=== PATIENT | female | born 1935 | race Caucasian/White ===

== ENCOUNTER → 2017-09-02 | Outpatient (CLI) | payer MEDICARE, BC ==
[~2017-09-02] MED LIST: ALBUTEROL NEBULIZER INH; ALBUTEROL2.5 MG/31 INH; ALBUTEROL2.5 MG/32 INH; ALPHAGAN P10 ML OPHTHALMIC; ASPIRIN81 M2 PO; ATENOLOL 50 MG50 M1 PO; ATENOLOL 50MG T50 M1 PO; AZOPT5 ML OPHTHALMIC; B-12250 MCG SUBLING; BENTYL10 MG PO; CARVEDILOL12.5 MG PO; CO Q-10100 M1; COENZYME Q10100 M2 PO; DOXYCYCLINE 10100 MG PO; FISH OIL 1,001000 M2 PO; FLUOXETINE HCL20 M1 PO; HYDROCODON-ACE1 EAC4 PO; HYDROCODON-ACE1 EAC5 PO; HYDRODIURIL PO; IMDUR 30 MG TAB30 M1 PO; LISINOPRIL40 MG PO; LIVALO1 MG PO; MUCINEX TA600 MG/TA2 PO; NITROSTAT0.4 MG PO; NITROSTAT0.4 MG SUBLING; OXYGEN; OXYGEN INH; PAXIL20 MG PO; PERCOCET PO; PHENERGAN 25 MG25 M1 PO; PLAVIX 75 MG TA75 M1 PO; POTASSIUM CHLO10 MEQ; POTASSIUM CHLO10 MEQ PO; PRILOSEC 20 MG20 MG PO; PRILOSEC40 MG PO; PROZAC 20 MG20 MG PO; PROZAC20 MG PO; REFRESH5 ML; REGLAN 10 MG TA10 M1 PO; VICODIN ES TAB1 EACH PO; VITAMIN B-12500 MC3 PO; VITAMIN B-125000 MCG SUBLING; VITAMIN D 5050000 I1 PO; VITAMIN D PO; ZETIA10 MG PO; ZPAK PO; [UNRECOGNIZED DRUG - CODE] PO
--- NOTE | 2017-09-02 14:45 | 2DMMODE ---
[place] [address] 2 D/M-MODE ECHOCARDIOGRAM Name: TETE LUU Room: [facility]#: [id number] Admission: 09/02/17 Attend Phys: Luther Vaughan, Discharge: Date of : 31 Date of Service: 09/02/17 1444 Report #: [id number] THIS REPORT FOR: //name// APPROVED REPORT Study performed: 09/02/2017 10:11:16 EXAM: Comprehensive 2D, Doppler, and color-flow Echocardiogram Patient Location: Out-Patient Status: routine BSA: 1.94 HR: 60 bpm BP: 115/75 mmHg Other Information Study Quality: Good Indications Aortic Valve Disease 2D Dimensions LVEF(%): 60.78 (>50%) IVSd: 16.97 (7-11mm) LVOT Diam: 20.01 (18-24mm) LVDd: 41.61 mm PWd: 11.28 (7-11mm) Ascending Ao: 29.96 (22-36mm) LVDs: 28.23 (25-40mm) Aortic Root: 29.75 mm Quinones's LVEF: 60.78 % Volumes Left Atrial Volume (Systole) LA ESV Index: 23.10 mL/m2 Aortic Valve AoV Peak Lee.: 2.08 m/s AO Peak Gr.: 17.27 mmHg LVOT Max P.57 mmHg AO Mean Gr.: 10.73 mmHg LVOT Mean P.78 mmHg LVOT Max V: 0.94 m/s AO V2 VTI: 46.23 cm LVOT Mean V: 0.62 m/s DIAN (VTI): 1.52 cm2 LVOT V1 VTI: 22.41 cm Mitral Valve E/A Ratio: 0.49 MV Decel. Time: 333.58 [place] [address] 2 D/M-MODE ECHOCARDIOGRAM Name: TETE LUU [id number] Admission: 09/02/17 Attend Phys: Luther Vaughan, Discharge: Date of : 31 Date of Service: 09/02/17 1444 Report #: [id number] MV E Max Lee.: 0.36 m/s MV PHT: 96.74 ms MVA (PHT): 2.27 cm2 TDI E/Lateral E': 5.14 E/Medial E': 6.00 Medial E' Lee.: 0.06 m/s Lateral E' Lee.: 0.07 m/s Pulmonary Valve PV Peak Lee.: 0.92 m/s PV Peak Gr.: 3.41 mmHg Tricuspid Valve TR Peak Gr.: 15.11 mmHg RVSP: 20.11 mmHg Left Ventricle The left ventricle is normal size. There is normal LV segmental wall motion. There is normal left ventricular wall thickness. Left ventricular systolic function is normal. The left ventricular ejection fraction is within the normal range. LVEF is 55-60%. Grade I - abnormal relaxation pattern. Right Ventricle The right ventricle is normal size. The right ventricular systolic function is normal. Atria The left atrium size is normal. The right atrium size is normal. Aortic Valve Aortic valve is calcified. Trace aortic regurgitation. No hemodynamically significant valvular aortic stenosis. Mitral Valve The mitral valve is normal in structure. Mild mitral regurgitation. No evidence of mitral valve stenosis. Tricuspid Valve The tricuspid valve is normal in structure. Trace tricuspid regurgitation. The RVSP is __20.1 mmHg. Pulmonic Valve The pulmonary valve is normal in structure. There is no pulmonic [place] [address] 2 D/M-MODE ECHOCARDIOGRAM Name: TETE LUU Room: [facility]#: [id number] Admission: 09/02/17 Attend Phys: Luther Vaughan, Discharge: Date of : 31 Date of Service: 09/02/17 1444 Report #: [id number] Great Vessels The aortic root is normal in size. IVC is normal in size and collapses with >50% inspiration Pericardium There is no pericardial effusion. <Conclusion> The left ventricle is normal size. There is normal left ventricular wall thickness. Left ventricular systolic function is normal. The left ventricular ejection fraction is within the normal range. LVEF is 55-60%. Grade I - abnormal relaxation pattern. The right ventricle is normal size. The left atrium size is normal. Aortic valve is calcified. Trace aortic regurgitation. No hemodynamically significant valvular aortic stenosis. The mitral valve is normal in structure. Mild mitral regurgitation. The tricuspid valve is normal in structure. Trace tricuspid regurgitation. The RVSP is __20.1 mmHg. IVC is normal in size and collapses with >50% inspiration There is no pericardial effusion. There is normal LV segmental wall motion. <ELECTRONICALLY SIGNED> By: Wesley Miller MD, FACC 09/02/17 1444 1444 1444 Wesley Miller MD, FACC /INF
== END ==
LOC: M.CRD 09:29
DX: I34.0 Nonrheumatic mitral (valve) insufficiency (principal); I70.0 Atherosclerosis of aorta; I35.0 Nonrheumatic aortic (valve) stenosis; I10 Essential (primary) hypertension; I25.10 Atherosclerotic heart disease of native coronary artery without angina pectoris; E78.5 Hyperlipidemia, unspecified

== ENCOUNTER 2018-06-23 18:31 | Observation (INO) | payer MEDICARE, BC ==
[~2018-06-23] VITALS: Ht 165.1 cm; Wt 93.4 kg
[~2018-06-23 18:31] MED LIST changes: +AZOPT OPHTH1 %/10 M1 OPHTHALMIC; -VITAMIN B-12500 MC3 PO; +VITAMIN B-12500 MCG PO
[2018-06-23 18:34] VITALS: BP 129/71
[2018-06-23] MEDS ORDERED: NEURONTIN 300300 M1 PO (18:44)
[2018-06-23 18:46] LABS: ABSOLUTE EOSINOPHILS 0.1 thou/uL (0.0-0.7); ABSOLUTE LYMPHOCYTES 1.8 thou/uL (0.8-5.3); ABSOLUTE MONOCYTES 0.7 thou/uL (0.0-1.2); ABSOLUTE NEUTROPHILS 4.1 thou/uL (1.6-8.1); BASOPHILS 0.4 %; EOSINOPHILS 1.8 %; HEMATOCRIT 37.6 % (37.0-47.0); HEMOGLOBIN 12.4 gm/dL (12.0-15.0); LYMPHOCYTES 26.7 %; MCH 30.1 pg (26.0-34.0); MCHC 33.1 g/dL (28.0-37.0); MCV 91.2 fL (80.0-100.0); MONOCYTES 9.8 %; MPV 8.3 fl. (7.2-11.1); NUCLEATED RBCS 0 /100WBC; PLATELET COUNT* 164 thou/uL (150-400); POLYS 61.3 %; RBC 4.13 mil/uL (4.20-5.00); RDW-CV 13.1 % (10.5-14.5); WBC 6.6 thou/uL (4.0-11.0)
[2018-06-23 18:54] LABS: ANION GAP 3 mmol/L (7-16); BUN 24 mg/dL (7-18); CALCIUM 9.6 mg/dL (8.5-10.1); CHLORIDE 102 mmol/L (98-107); CO2 37 mmol/L (21-32); CREATININE 1.4 mg/dL (0.6-1.3); GLUCOSE 152 mg/dL (70-99); POTASSIUM 3.9 mmol/L (3.5-5.1); SODIUM 142 mmol/L (136-145)
[2018-06-23 18:56] LABS: APTT 26.6 Seconds (25.0-31.3); PROTIME 10.3 Seconds (9.20-11.50)
[2018-06-23] MEDS ORDERED: COZAAR 25 MG TA25 M1 PO (18:58)
[2018-06-23] MEDS ORDERED: COREG25 MG PO (19:00)
[2018-06-23] MEDS ORDERED: MOBIC15 MG PO (19:01)
[2018-06-23] MEDS ORDERED: PREDNISONE 10 M10 MG PO (19:02)
[2018-06-23] MEDS ORDERED: VOLTAREN GEL 1100 G1 TOP (19:02)
[2018-06-23] MEDS ORDERED: CELEXA20 MG PO (19:02)
[2018-06-23] MEDS ORDERED: MINOCIN50 MG PO (19:02)
[2018-06-23] MEDS ORDERED: PYRIDOXINE HCL50 MG PO (19:03)
[2018-06-23 19:13] LABS: ALBUMIN 3.6 g/dL (3.4-5.0); ALKALINE PHOSPHATASE 57 U/L (46-116); CK-MB MASS 1.5 ng/mL (<0.5-3.6); LIPASE 78 U/L (73-393); MAGNESIUM 1.9 mg/dL (1.8-2.4); NT-PRO BRAIN NAT PEPTIDE 145 pg/mL (<300); SGOT 21 U/L (15-37); SGPT 20 U/L (30-65); TOTAL BILIRUBIN 0.3 mg/dL (<0.1-1.0); TOTAL PROTEIN 7.3 g/dL (6.4-8.2); TROPONIN-I LEVEL <0.06 ng/mL (<0.06)
[2018-06-23 20:18] LABS: URINE BILIRUBIN NEGATIVE (Negative); URINE BLOOD TRACE (Negative); URINE CLARITY CLEAR; URINE COLOR YELLOW; URINE GLUCOSE-RANDOM NEGATIVE (Negative); URINE KETONES NEGATIVE (Negative); URINE LEUKOCYTES-REFLEX NEGATIVE (Negative); URINE NITRITE-REFLEX NEGATIVE (Negative); URINE PROTEIN NEGATIVE (Negative); URINE UROBILINOGEN 0.2 E.U./dl (0.2-1.0)
[2018-06-23 21:40] VITALS: BP 136/65
[2018-06-23 21:55] VITALS: BP 136/59
[2018-06-24] VITALS: BP 150/73
[2018-06-24 04:00] VITALS: BP 124/63
[2018-06-24 07:53] VITALS: BP 141/62
[2018-06-24 09:19] VITALS: BP 141/62
--- NOTE | 2018-06-24 10:15 | EKG ---
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[place]: [place] : [id number] Requested By: Jam Leyva Order Number: [id number] MD: Edwin Flores Measurements Intervals [place] Rate: 63 P: 15 [place]: 197 QRS: -62 QRSD: 163 T: 13 QT: 450 QTc: 461 Interpretive Statements Sinus rhythm RBBB and LAFB Left ventricular hypertrophy Baseline wander in lead(s) II,III,aVF Compared to ECG 10/26/2016 13:22:42 No significant changes Electronically Signed On 06-24-2018 10:15:19 ASSISTANT INFANT TODDLER TEACHER by Edwin Flores [email or web address] <ELECTRONICALLY SIGNED> By: Edwin Flores MD, [facility] 06/24/18 1015 [id number] Edwin Flores MD, [facility] /EPI
== END 2018-06-24 11:10 | disposition home or self-care (01) ==
LOC: M.ERS 18:31 → M.TBA-ER 20:41 → M.2W 20:41
PROVIDERS: Emergency Medicine; Family Medicine; ADMIT Internal Medicine
DX: R07.89 Other chest pain (principal); M19.90 Unspecified osteoarthritis, unspecified site; E86.0 Dehydration; I25.2 Old myocardial infarction; I10 Essential (primary) hypertension; J44.9 Chronic obstructive pulmonary disease, unspecified; Z79.899 Other long term (current) drug therapy; I25.10 Atherosclerotic heart disease of native coronary artery without angina pectoris

== ENCOUNTER → 2018-11-04 | Outpatient (CLI) | payer MEDICARE, BC ==
[~2018-11-04] MED LIST changes: +CELEXA20 MG PO; +COREG25 MG PO; +COZAAR 25 MG TA25 M1 PO; +MINOCIN50 MG PO; +MOBIC15 MG PO; +NEURONTIN 300300 M1 PO; +PREDNISONE 10 M10 MG PO; +PYRIDOXINE HCL50 MG PO; +VOLTAREN GEL 1100 G1 TOP
--- NOTE | 2018-11-04 14:55 | 2DMMODE ---
[place] [address] 2 D/M-MODE ECHOCARDIOGRAM Name: TETE LUU Room: [facility]#: [id number] Admission: 11/04/18 Attend Phys: Cara Correa Discharge: Date of : 31 Date of Service: 11/04/18 1454 Report #: [id number] THIS REPORT FOR: //name// APPROVED REPORT Study performed: 11/04/2018 13:05:34 EXAM: Comprehensive 2D, Doppler, and color-flow Echocardiogram Patient Location: Out-Patient BSA: 2.00 HR: 72 bpm BP: 115/75 mmHg Other Information Study Quality: Good Indications CAD 2D Dimensions IVSd: 12.96 (7-11mm) LVOT Diam: 20.85 (18-24mm) LVDd: 51.35 mm PWd: 12.30 (7-11mm) Ascending Ao: 27.22 (22-36mm) LVDs: 32.49 (25-40mm) Aortic Root: 29.14 mm Aortic Valve AoV Peak Lee.: 2.29 m/s AO Peak Gr.: 20.90 mmHg LVOT Max P.91 mmHg AO Mean Gr.: 12.34 mmHg LVOT Mean P.54 mmHg LVOT Max V: 0.85 m/s AO V2 VTI: 53.84 cm LVOT Mean V: 0.58 m/s DIAN (VTI): 1.42 cm2 LVOT V1 VTI: 22.31 cm Mitral Valve E/A Ratio: 0.57 MV Decel. Time: 503.48 ms MV E Max Lee.: 0.44 m/s MV PHT: 146.01 ms MVA (PHT): 1.51 cm2 TDI E/Lateral E': 7.33 E/Medial E': 8.80 Medial E' Lee.: 0.05 m/[place] [address] 2 D/M-MODE ECHOCARDIOGRAM Name: TETE LUU Room: [facility]#: [id number] Admission: 11/04/18 Attend Phys: Cara Correa Discharge: Date of : 31 Date of Service: 11/04/18 1454 Report #: [id number] Lateral E' Lee.: 0.06 m/s Pulmonary Valve PV Peak Lee.: 0.83 m/s PV Peak Gr.: 2.76 mmHg Tricuspid Valve RAP Estimate: 5.00 mmHg TR Peak Gr.: 25.48 mmHg RVSP: 30.48 mmHg PA Pressure: 30.48 mmHg Left Ventricle The left ventricle is normal size. The inferior and lateral segments are hypokinetic Mild concentric left ventricular hypertrophy. Left ventricular systolic function is normal. The left ventricular ejection fraction is within the normal range. LVEF is 55%. Grade I - abnormal relaxation pattern. Right Ventricle The right ventricle is normal size. The right ventricular systolic function is normal. Atria The left atrium size is normal. The right atrium size is normal. Aortic Valve Aortic valve is calcified. Trace aortic regurgitation. Mild aortic stenosis.mean gradient 12mmHg Mitral Valve The mitral valve is normal in structure. Mild mitral regurgitation. No evidence of mitral valve stenosis. Tricuspid Valve The tricuspid valve is normal in structure. Mild tricuspid regurgitation. Pulmonic Valve The pulmonary valve is normal in structure. There is no pulmonic valvular regurgitation. Great Vessels The aortic root is normal in size. IVC is normal in size and collapses >50% with inspiration[place] [address] 2 D/M-MODE ECHOCARDIOGRAM Name: JUSTETE FRANKELE [id number] Admission: 11/04/18 Attend Phys: Cara Correa Discharge: Date of : 31 Date of Service: 11/04/18 1454 Report #: [id number] There is no pericardial effusion. <Conclusion> LVEF is 55%. The inferior and lateral segments are hypokinetic Mild aortic stenosis.mean gradient 12mmHg Trace aortic regurgitation. Mild mitral regurgitation. Grade I - abnormal relaxation pattern. <ELECTRONICALLY SIGNED> By: Edwin Flores MD, [facility] 11/04/18 1454 1454 1454 Edwin Flores MD, FAC /INF
== END ==
LOC: M.CRD 10-21 14:00
DX: I08.3 Combined rheumatic disorders of mitral, aortic and tricuspid valves (principal); I25.10 Atherosclerotic heart disease of native coronary artery without angina pectoris

== ENCOUNTER → 2019-01-27 | Outpatient (CLI) | payer MEDICARE, BC ==
[~2019-01-27] MED LIST changes: +B COMPLEX1 EACH PO; +DULOXETINE HCL30 MG PO; +LASIX 40 MG TAB40 M2 PO; +MIRALAX17 GM PO; +PAXIL10 MG PO; +UNICOMPLEX M TA1 TA1 PO
--- NOTE | ~2019-01-27 | PAINCON ---
[address] [address] PAIN MANAGEMENT CONSULTATION Name: TETE LUU Room: [facility]#: [id number] Admission: 01/27/19 Attend Phys: Zabrina Carroll MD Discharge: Date of : 33 Report #: [id number] THIS REPORT FOR: //name// CC: Rubén Carroll DATE OF SERVICE: 01/27/2019 CHIEF COMPLAINT: Back pain. HISTORY: The patient is an 83-year-old female, who has been referred to the pain clinic. The patient states she has had chronic pain for about 20 years. It involves her low back area. She has noted increased pain and discomfort. A few months ago, she hurt her leg. Since hurting her legs, she has had more difficulty walking. She still ambulates at home, but only for short distances. She has been using hydrocodone and feels that this medication is beneficial. She has been using gabapentin to help with the pain. She has not had back surgery. She has seen a chiropractor in the past. She was told about 6 years ago that it was not a whole lot more that they could do and they were afraid that they may cause some worsening of her condition. She has not had chiropractic treatment since then. She has had a injection in the hip area with cortisone a few weeks ago. She has not noticed a significant improvement in her pain. She states that she did have back injections in the past. She was at [facility] and received what sounds like trigger point injections. Since she hurt her leg about a couple of months ago, she has been decreasing her activity. She does use oxygen. She initially use oxygen only at night and now is using it in the day as well. She has not undergone physical therapy. She states that her computer recycling worker does not feel that she is a candidate for surgery. She fell about 3 months ago and broke a friend's table. PAST MEDICAL HISTORY: 1. Left mastectomy/breast cancer. 2. Myocardial infarct with stents x 2. 3. History of myocardial infarction. 4. Chronic obstructive pulmonary disease. 5. Hypertension. 6. Chronic back pain. 7. Glaucoma. 8. Depression. 9. Diverticulosis, colon. 10. Gastroesophageal reflux disease. 11. Hip osteoarthritis. 12. Irritable bowel syndrome. 13. Mitral regurgitation. 14. Osteoarthritis of both knees. 15. [place] [address] PAIN MANAGEMENT CONSULTATION Name: TETE LUU [id number] Admission: 01/27/19 Attend Phys: Zabrina Carroll MD Discharge: Date of : 31 Report #: [id number] 16. Spinal stenosis of lumbar region. 17. Spondylolisthesis at L4-L5. PAST SURGICAL HISTORY: 1. Cholecystectomy in 2. 2. Colon biopsy in 2010. 3. Hip surgery in 1991. 4. Hysterectomy in 1973. 5. Mastectomy in 1993. 6. Right knee replacement in 2011. CURRENT MEDICATIONS: Aspirin 81 mg, Alphagan P eyedrops ophthalmic b.i.d., Azopt ophthalmic drops/glaucoma b.i.d., Coreg 25 mg b.i.d., vitamin B12, duloxetine 30 mg, Zetia 10 mg, Lasix 40 mg, gabapentin 300 mg, total of 600 mg t.i.d.; hydrocodone 10/325 one p.o. q.4 hours, takes about 5 tablets daily, Cozaar 25 mg, multivitamin with iron, nitroglycerin sublingual p.r.n., oxygen 4 liters nasal cannula, Paxil 10 mg, Livalo, cholesterol; MiraLax 17 grams, potassium 10 mEq, and vitamin B complex. ALLERGIES: CODEINE, PENICILLIN. 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 REVIEW OF SYSTEMS: Weight change, fever, fatigue, night sweats, eye disease, wears glasses; hearing loss, heart trouble, chest pain, shortness of breath with walking, swelling of ankles and feet, shortness of breath, loss of appetite, bowel changes, abdominal pain, peptic ulcer, joint pain, joint stiffness, weakness of muscles and joints, muscle pain, back pain, difficulty walking, lightheadedness, dizziness, numbness, and tingling sensation. PAIN CLINIC ASSESSMENT AND PQRS: 1. The patient has some arthritic changes in the low back area with spinal stenosis. She is not being treated for rheumatoid arthritis. 2. Pain intensity is 7/10. 3. Blood thinner. The patient is not on a blood thinning medication. 4. Hypertension. The patient is being treated for hypertension. 5. Opioids greater than 6 weeks. The patient receives medication from [facility], her primary physician. 6. Risk assessment tool, low for opioid use. 7. Functional assessment tool. 8. Recreational drug use. The patient denies use of recreational drugs. 9. Tobacco: The patient denies use of tobacco. 10. Alcohol. The patient denies frequent use of alcoholic beverages. PHYSICAL EXAMINATION: [facility] [address] [place] [address] PAIN MANAGEMENT CONSULTATION Name: TETE LUU Room: [facility]#: [id number] Admission: 01/27/19 Attend Phys: Zabrina Carroll MD Discharge: Date of : 33 Report #: [id number] GENERAL: The patient is a well-developed white female. She appears her stated age of 83 years. She is alert and oriented x 3. Her affect is appropriate. Speech is fluent. Height is 5 feet 5 inches, weight is 217 pounds, and BMI is 36.2. VITAL SIGNS: Blood pressure is 121/74, heart rate is 73, respiratory rate is 20, room air saturation is 92% with oxygen at 4 liters per minute using a nasal cannula, and temperature is 98.5. HEENT: Normocephalic, atraumatic. Extraocular eye muscles intact. The patient is wearing a nasal cannula. She has decreased hearing, it appeared she is accompanied by an aid. NECK: Without adenopathy or JVD. HEART: Heart sounds are distant. LUNGS: Generally, clear to auscultation. ABDOMEN: Protuberant. EXTREMITIES: Upper extremity muscle strength is judged to be 4-/5. 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 MUSCULOSKELETAL: The patient is in a wheelchair. She complains of pain in lower portion of her back and describes pain that is radiating down in the L5-S1 dermatomal distribution with sciatica on the left as well as the right side. LABORATORY DATA: 1. Study of lumbar spine, four views, AP, lateral, right oblique, and left oblique. Findings: Alignment is normal. 2. Disk spaces: Mild disk space narrowing at L5-S1. 3. Spondylosis: No significant spondylosis noted. 4. Spondylolisthesis: Moderate spondylolisthesis of L4-L5. 5. Compression fracture. Old compression fracture that appears stable at T11. 6. Aortic sclerosis noted and bilateral hip prosthesis noted. 7. Spinal stenosis of the lumbar region. IMPRESSION: 1. Low back pain and difficulty walking. 2. Left mastectomy/breast cancer. 3. Myocardial infarct with stents x 2. 4. History of myocardial infarction. 5. Chronic obstructive pulmonary disease. 6. Hypertension. 7. Chronic back pain. 8. Glaucoma. 9. Depression. 10. Diverticulosis, colon. 11. Gastroesophageal reflux disease. 12. Hip osteoarthritis. 13. Irritable bowel syndrome. 14. [place] [address] PAIN MANAGEMENT CONSULTATION Name: JUSTETE MARIANNA [facility] [id number] Admission: 01/27/19 Attend Phys: Zabrina Carroll MD Discharge: Date of : 33 Report #: [id number] 15. Osteoarthritis of both knees. 16. Osteoarthritis of lumbar spine. 17. Spinal stenosis of lumbar region. 18. Spondylolisthesis at L4-L5. RECOMMENDATIONS: We have discussed treatment options with the patient. At this juncture, she feels that her opioid medications continued to be helpful, but are not providing her with as much pain relief as she would like. We explained to the patient the limiting factor with opioid medications. Sometimes, the need for a drug holiday might be efficacious. At this point, the patient states that she is hurting to intensely to withdraw her medications and decrease them for a number of months to have them provide more efficacy. She is able to walk at home, but somewhat limited. She has decreasing muscle strength, which she has been experiencing over the last number of months since hurting her leg. She does have some instability. She states that she did fall on the table about 3 months ago. We have discussed use of medications. Medications at this juncture may make her a bit more unstable. She is using the gabapentin medication and it seems that medication is helpful. She would probably gain most from physical therapy. She states that she has not undergone physical therapy. Physical therapy with water therapy might be the most advantageous. This would increase her ability to stretch and increase her activity level because of increased flexibility. We explained the possibility of an epidural steroid injection still remains. She has had injections in the past and not found that they were as efficacious as she would like. My thought would be that we would try the most conservative approach at this point to have her try physical therapy. She will follow up in the future as needed. We would like to thank you for letting us to participate in her care. By: 1400 [id number]. Boo Carroll MD /JEFFERY
== END ==
LOC: M.PC 04:51
DX: M54.5 Low back pain (principal); I25.2 Old myocardial infarction; K21.9 Gastro-esophageal reflux disease without esophagitis; M19.90 Unspecified osteoarthritis, unspecified site; J44.9 Chronic obstructive pulmonary disease, unspecified; G89.29 Other chronic pain; K57.30 Diverticulosis of large intestine without perforation or abscess without bleeding; M16.10 Unilateral primary osteoarthritis, unspecified hip; I34.0 Nonrheumatic mitral (valve) insufficiency; K58.9 Irritable bowel syndrome, unspecified; Z90.49 Acquired absence of other specified parts of digestive tract; Z90.710 Acquired absence of both cervix and uterus; Z79.82 Long term (current) use of aspirin; Z79.899 Other long term (current) drug therapy

== ENCOUNTER → 2019-04-21 | Outpatient (CLI) | payer MEDICARE, BC | LOC: M.RAD 13:51 | DX: J84.10 Pulmonary fibrosis, unspecified (principal); Z88.0 Allergy status to penicillin; Z88.2 Allergy status to sulfonamides ==

== ENCOUNTER → 2019-04-28 | Outpatient (CLI) | payer MEDICARE, BC ==
--- NOTE | 2019-05-01 07:46 | SLEEP ---
[address] [address] SLEEP STUDY REPORT Name: TETE LUU Room: [facility]#: [id number] Admission: 04/28/19 Attend Phys: FRANDY Esteves Discharge: Date of : 31 Report #: [id number] THIS REPORT FOR: //name// CC: Cara Correa NP Rubén Olson This study has been reviewed in its entirety by a board certified sleep specialist DATE OF SERVICE: 04/28/2019 SLEEP STUDY REFERRING PHYSICIAN: Cara Correa NP The patient is an 84-year-old who weighs 215 pounds with a BMI of 35.8. The patient's Freeport score was 15. The patient underwent diagnostic sleep study performed by [facility]. During the night of the study, the patient spent 413 minutes in bed and slept for 306 minutes with a sleep efficiency of 74%. Sleep latency was 33.7 minutes with a REM latency of 158 minutes. Sleep architecture showed normal stage 1 sleep, increased stage 2 sleep, normal slow wave and reduced REM sleep. During the night study, the patient had 8 obstructive apneas, no mixed or central apneas and 57 hypopneas. The patient's apnea-hypopnea index was 12.7 per hour with a REM index of 16 per hour and a supine index of 12.7 per hour. EKG monitoring revealed an average heart rate of 58 beats per minute. No sustained arrhythmias observed. PLMS were seen at an index of 80 per hour and 4.5 per hour caused EEG arousals. Nocturnal oximetry study revealed an average oxygen saturation of 94% with lowest of 86%. 22 minutes were spent in oxygen saturation of less than 89%. The patient normally wears oxygen at 3 liters, but this study was done on room air. Due to low AHI, the patient did not meet the split night criteria for CPAP initiation. IMPRESSION: 1. Mild sleep apnea-hypopnea syndrome with moderate increase during REM sleep. Total AHI 12.7 per hour with a REM AHI of 16 per hour. 2. [place] [address] SLEEP STUDY REPORT Name: JUSTETE MARIANNA Room: [facility]#: [id number] Admission: 04/28/19 Attend Phys: FRANDY Esteves Discharge: Date of : 33 Report #: [id number] 3. No clinically significant nocturnal hypoxia. RECOMMENDATIONS: 1. The patient is clinically symptomatic with an Freeport score of 15. I would recommend treating the patient's sleep apnea with CPAP. Alternate treatment option would include use of an oral appliance as recommended by the dentist. 2. Once the patient is optimally treated, then follow up in 4-6 weeks to assess compliance with treatment and to document clinical improvement. 3. Weight loss is advised. 4. Avoid CHUTE TAPPER depressants. 5. Cautioned regarding driving until symptoms of sleep apnea resolve with the above recommendation. 6. The patient should also be further evaluated for symptoms of restless legs during the day and if present, it can be treated with dopaminergic agonist agents. <ELECTRONICALLY SIGNED> By: Dae Joseph MD 05/01/19 0746 [id number] 2029Atana Joseph MD /nt
== END ==
LOC: M.SLEEPLAB 20:29
DX: G47.33 Obstructive sleep apnea (adult) (pediatric) (principal); G47.30 Sleep apnea, unspecified; Z88.8 Allergy status to other drugs, medicaments and biological substances; Z88.2 Allergy status to sulfonamides

== ENCOUNTER 2019-07-20 14:29 | Inpatient (IN) | payer MEDICARE, BC ==
[~2019-07-20] VITALS: Ht 165.1 cm; Wt 103.0 kg
[2019-07-20 14:35] VITALS: BP 180/87
[2019-07-20] MEDS ORDERED: OXYGEN MISCELL (14:46)
[2019-07-20] MEDS ORDERED: NYSTATIN1 EA10 TOP (14:46)
[2019-07-20 16:12] LABS: URINE BILIRUBIN NEGATIVE (Negative); URINE BLOOD TRACE (Negative); URINE CLARITY CLEAR; URINE COLOR YELLOW; URINE GLUCOSE-RANDOM NEGATIVE (Negative); URINE KETONES NEGATIVE (Negative); URINE LEUKOCYTES-REFLEX NEGATIVE (Negative); URINE NITRITE-REFLEX NEGATIVE (Negative); URINE PROTEIN NEGATIVE (Negative); URINE UROBILINOGEN 0.2 E.U./dl (0.2-1.0)
[2019-07-20 16:34] LABS: ABSOLUTE EOSINOPHILS 0.1 thou/uL (0.0-0.7); ABSOLUTE LYMPHOCYTES 1.7 thou/uL (0.8-5.3); ABSOLUTE MONOCYTES 0.6 thou/uL (0.0-1.2); ABSOLUTE NEUTROPHILS 4.2 thou/uL (1.6-8.1); BASOPHILS 0.5 %; EOSINOPHILS 1.7 %; HEMATOCRIT 36.5 % (37.0-47.0); HEMOGLOBIN 12.4 gm/dL (12.0-15.0); LYMPHOCYTES 25.7 %; MCH 30.4 pg (26.0-34.0); MCHC 33.9 g/dL (28.0-37.0); MCV 89.6 fL (80.0-100.0); MONOCYTES 8.4 %; MPV 8.4 fl. (7.2-11.1); NUCLEATED RBCS 0 /100WBC; PLATELET COUNT* 166 thou/uL (150-400); POLYS 63.7 %; RBC 4.07 mil/uL (4.20-5.00); RDW-CV 13.3 % (10.5-14.5); WBC 6.6 thou/uL (4.0-11.0)
[2019-07-20 16:44] LABS: APTT 28.1 Seconds (25.0-31.3); CREATININE 0.9 mg/dL (0.6-1.3); POTASSIUM 3.6 mmol/L (3.5-5.1); PROTIME 10.5 Seconds (9.20-11.50)
[2019-07-20 16:49] LABS: ALBUMIN 3.4 g/dL (3.4-5.0); TOTAL BILIRUBIN 0.3 mg/dL (<0.1-1.0); TOTAL PROTEIN 6.9 g/dL (6.4-8.2)
[2019-07-20 18:04] VITALS: BP 152/80
[2019-07-20 18:45] VITALS: BP 155/56
[2019-07-21 00:12] VITALS: BP 156/72
[2019-07-21 05:43] LABS: HEMATOCRIT 36.4 % (37.0-47.0); HEMOGLOBIN 12.2 gm/dL (12.0-15.0); MCH 30.5 pg (26.0-34.0); MCHC 33.5 g/dL (28.0-37.0); MPV 8.5 fl. (7.2-11.1); RDW-CV 13.4 % (10.5-14.5); WBC 6.3 thou/uL (4.0-11.0)
[2019-07-21 06:19] LABS: CALCIUM 8.4 mg/dL (8.5-10.1); CREATININE 0.8 mg/dL (0.6-1.3); MAGNESIUM 1.6 mg/dL (1.8-2.4)
[2019-07-21 08:00] VITALS: BP 160/69
--- NOTE | 2019-07-21 10:59 | EKG ---
[place] [address] ELECTROCARDIOGRAM REPORT Name: TETE LUU Room: [address] ADM IN M.R.#: [id number] Admission: 07/20/19 Attend Phys: Rhett Neville, Discharge: Date of : 31 Date of Service: 07/20/19 1446 Report #: [id number] THIS REPORT FOR: //name// [facility] ED Test Date: 2019-07-20 Test Time: 14:46:45 Pat Name: ETTE LUU Department: Room: [facility] Gender: F Production Or Plant Engineer: : 1935 Requested By: Jam Leyva Order Number: [id number] MD: Juni Lamb Measurements Intervals [place] Rate: 70 P: 22 [place]: 65 QRS: -67 QRSD: 162 T: 3 QT: 439 QTc: 474 Interpretive Statements Sinus rhythm Short KS interval RBBB and LAFB Left ventricular hypertrophy Baseline wander in lead(s) V3,V4,V5,V6 Compared to ECG 06/23/2018 18:32:17 Short KS interval now present Electronically Signed On 07-21-2019 10:58:15 PARTS COORDINATOR by Juni Lamb [email or web address] <ELECTRONICALLY SIGNED> By: Juni Lamb MD, [facility] 07/21/19 1058 1446 1446 Juni Lamb MD, [facility] /EPI
[2019-07-21 15:45] VITALS: BP 134/65
[2019-07-21 19:30] VITALS: BP 146/59
[2019-07-22 07:45] VITALS: BP 147/79
[2019-07-22 16:00] VITALS: BP 141/66
[2019-07-22 20:34] VITALS: BP 132/58
[2019-07-23 08:30] VITALS: BP 153/77
[2019-07-23] MEDS ORDERED: HYDROCODON-ACE1 EAC5 PO (09:37)
[2019-07-23] MEDS ORDERED: IBUPROFEN 400400 M2 PO (09:37)
[2019-07-23 11:35] VITALS: BP 153/77
== END 2019-07-23 15:55 | DRG 199 ==
LOC: M.ERS 14:29 → M.TBA-ER 15:59 → M.3W 15:59
PROVIDERS: Family Medicine; ADMIT Internal Medicine
DX: S27.0XXA Traumatic pneumothorax, initial encounter (principal); J96.21 Acute and chronic respiratory failure with hypoxia; S22.42XA Multiple fractures of ribs, left side, initial encounter for closed fracture; J44.9 Chronic obstructive pulmonary disease, unspecified; Z96.651 Presence of right artificial knee joint; G89.29 Other chronic pain; F32.9 Major depressive disorder, single episode, unspecified; M16.0 Bilateral primary osteoarthritis of hip; I25.10 Atherosclerotic heart disease of native coronary artery without angina pectoris; E66.9 Obesity, unspecified; Z66 Do not resuscitate; M54.9 Dorsalgia, unspecified; I50.9 Heart failure, unspecified; Z96.643 Presence of artificial hip joint, bilateral; Z90.710 Acquired absence of both cervix and uterus; Z90.49 Acquired absence of other specified parts of digestive tract; Z90.12 Acquired absence of left breast and nipple; Z85.3 Personal history of malignant neoplasm of breast; I25.2 Old myocardial infarction; Z95.5 Presence of coronary angioplasty implant and graft; Z88.6 Allergy status to analgesic agent; Z88.0 Allergy status to penicillin; Z68.37 Body mass index [BMI] 37.0-37.9, adult; Z79.82 Long term (current) use of aspirin; Z79.899 Other long term (current) drug therapy; W18.39XA Other fall on same level, initial encounter; Y93.89 Activity, other specified; Y92.89 Other specified places as the place of occurrence of the external cause; Y99.8 Other external cause status

== ENCOUNTER 2019-11-05 14:29 | Inpatient (IN) | payer MEDICARE, BC ==
[~2019-11-05] VITALS: Ht 167.6 cm; Wt 97.1 kg
[~2019-11-05 14:29] MED LIST changes: -ALPHAGAN P10 ML OPHTHALMIC; +ALPHAGAN P5 ML OPHTHALMIC; +IBUPROFEN 400400 M2 PO; +NYSTATIN1 EA10 TOP; +OXYGEN MISCELL
[2019-11-05 14:46] VITALS: BP 146/60
[2019-11-05] MEDS ORDERED: LIPITOR 10 MG10 M1 PO (14:48)
[2019-11-05 17:25] LABS: ABSOLUTE BASOPHILS 0.1 thou/uL (0.0-0.2); ABSOLUTE EOSINOPHILS 0.3 thou/uL (0.0-0.7); ABSOLUTE LYMPHOCYTES 1.3 thou/uL (0.8-5.3); ABSOLUTE MONOCYTES 0.7 thou/uL (0.0-1.2); ABSOLUTE NEUTROPHILS 4.7 thou/uL (1.6-8.1); EOSINOPHILS 3.6 %; HEMATOCRIT 35.3 % (37.0-47.0); HEMOGLOBIN 11.9 gm/dL (12.0-15.0); LYMPHOCYTES 19.1 %; MCH 30.5 pg (26.0-34.0); MCHC 33.8 g/dL (28.0-37.0); MCV 90.2 fL (80.0-100.0); MONOCYTES 9.9 %; MPV 9.1 fl. (7.2-11.1); NUCLEATED RBCS 0 /100WBC; PLATELET COUNT* 142 thou/uL (150-400); POLYS 66.4 %; RBC 3.91 mil/uL (4.20-5.00); RDW-CV 13.6 % (10.5-14.5)
[2019-11-05 17:34] LABS: CALCIUM 8.7 mg/dL (8.5-10.1); CREATININE 1.2 mg/dL (0.6-1.3); POTASSIUM 3.7 mmol/L (3.5-5.1)
[2019-11-05 17:36] LABS: PROTIME 10.6 Seconds (9.20-11.50)
[2019-11-05 17:39] LABS: ALBUMIN 3.1 g/dL (3.4-5.0); TOTAL BILIRUBIN 0.4 mg/dL (<0.1-1.0); TOTAL PROTEIN 6.7 g/dL (6.4-8.2)
[2019-11-05 18:31] VITALS: BP 144/56
[2019-11-05 18:34] VITALS: BP 151/66
--- NOTE | 2019-11-05 19:08 | NUR ---
PT ADMITTED WITH LEFT HIP FRACTURE. PT ALERT AND ORIENTED AND FORGETFUL. PT ON 3 LITERS O2. FALL RISK PRECAUTIONS IN PLACE. REPORT GIVEN TO NIGHT NURSE. WILL CONTINUE TO MONITOR.
[2019-11-05 20:00] VITALS: BP 120/47
[2019-11-06 04:33] LABS: ABSOLUTE EOSINOPHILS 0.3 thou/uL (0.0-0.7); ABSOLUTE LYMPHOCYTES 1.5 thou/uL (0.8-5.3); ABSOLUTE MONOCYTES 0.7 thou/uL (0.0-1.2); ABSOLUTE NEUTROPHILS 3.7 thou/uL (1.6-8.1); BASOPHILS 0.3 %; EOSINOPHILS 4.6 %; HEMATOCRIT 33.3 % (37.0-47.0); HEMOGLOBIN 11.5 gm/dL (12.0-15.0); LYMPHOCYTES 23.9 %; MCHC 34.5 g/dL (28.0-37.0); MCV 89.8 fL (80.0-100.0); MPV 9.2 fl. (7.2-11.1); NUCLEATED RBCS 0 /100WBC; PLATELET COUNT* 130 thou/uL (150-400); POLYS 59.2 %; RBC 3.71 mil/uL (4.20-5.00); RDW-CV 13.2 % (10.5-14.5); WBC 6.2 thou/uL (4.0-11.0)
[2019-11-06 04:39] LABS: CALCIUM 8.2 mg/dL (8.5-10.1); POTASSIUM 3.9 mmol/L (3.5-5.1)
--- NOTE | 2019-11-06 04:43 | NUR ---
PT A&OX4, ON 3L NC - SAME AT HOME, TOE TOUCH WB MAINTAINED, PT TURNED Q2H, PAIN MEDS REQUESTED AND GIVEN ORDERED. WILL CONTINUE WITH PLAN OF CARE.
[2019-11-06 08:00] VITALS: BP 156/81
[2019-11-06 09:53] LABS: URINE BILIRUBIN NEGATIVE (Negative); URINE BLOOD NEGATIVE (Negative); URINE CLARITY CLEAR; URINE COLOR YELLOW; URINE GLUCOSE-RANDOM NEGATIVE (Negative); URINE KETONES NEGATIVE (Negative); URINE LEUKOCYTES-REFLEX NEGATIVE (Negative); URINE NITRITE-REFLEX NEGATIVE (Negative); URINE PROTEIN NEGATIVE (Negative)
--- NOTE | 2019-11-06 14:49 | NUR ---
cm completed initial assessment to discuss d/c plan. pt lives alone. pt has c/g service that does cleaning and laundry, etc and "is there" for standby when she showers. pt is current w/[facility]. Dominik w/[facility] called to confirm hospitalization. pt has hx w/snf and hh but doesnt recall what company. pt has 2 sons in [place]. Per LOS, pt "is not moving much...need PT recommendation for rehab consult or snf." CM to cont to follow and assist PRN.
--- NOTE | 2019-11-06 17:03 | NUR ---
PATIENT ALERT AND ORIENTED X 4. VITAL SIGNS STABLE ON 3L O2 NASAL CANULA. UP WITH MAX ASSIST TO THE CHAIR. IV PATENT AND SALINE LOCKED. DENIES PAIN AND NAUSEA AT THIS TIME. TURNED AND REPOSITIONED EVERY TWO HOURS. UP TO CHAIR FOR MEALS. SPOKE WITH FAMILY MEMBER OVER THE PHONE AND GAVE PATIENT UPDATES, WITH PATIENT'S PERMISSION. FALL PRECAUTIONS IN PLACE AND BED ALARM ON. HOURLY ROUNDS MAINTAINED THROUGHOUT THE SHIFT. CALL LIGHT WITHIN REACH. NURSING WILL CONTINUE TO MONITOR.
[2019-11-06 20:00] VITALS: BP 163/81
--- NOTE | 2019-11-07 04:42 | NUR ---
PT A&O X 4, FORGETFUL AT TIMES. ON 2-3L BY NC. MEDS GIVEN ORDERED. PAIN MANAGED WITH NORCO. PT INCONTINENT AND AGREED TO TRY PUREWICK. CALL LIGHT WITHIN REACH. HOURLY ROUNDINGS, TURNS COMPLETED. WILL CONTINUE TO MONITOR.
[2019-11-07 07:40] VITALS: BP 146/71
[2019-11-07 16:00] VITALS: BP 152/68
--- NOTE | 2019-11-07 17:07 | NUR ---
ASSUMED CARE OF PATIENT AT APPROX 0730. ALERT AND ORIENTED X4. ASSESSMENT COMPLETED AND CHARTED. VSS ON 2 LITERS 02. COMPLAINTS OF PAIN ADDRESSED WITH ORAL NORCO AND TRAMADOL. NO OTHER COMPLAINTS THIS SHIFT. PATIENT UP WITH MODERATED ASSIST TO BEDSIDE COMMODE AND CHAIR. UP WITH THERAPY THIS AFTERNOON AND PROGRESSING TOWARD GOALS. FALL PRECAUTIONS IN PLACE. CALL LIGHT WITHIN REACH. HOURLY ROUNDS COMPLETED. WILL CONTINUE WITH PLAN OF CARE.
[2019-11-07 19:57] VITALS: BP 122/65
[2019-11-07 20:00] VITALS: BP 122/65
--- NOTE | 2019-11-08 05:12 | NUR ---
PT A&O, FORGETFUL AT TIMES. PT ON 2L BY NC. VSS. MEDS GIVEN ORDERED. PAIN MANAGED WITH NORCO. PUREWICK IN PLACE. CALL LIGHT WITHIN REACH. WILL CONTINUE TO MONITOR.
[2019-11-08 07:30] VITALS: BP 119/55
[2019-11-08 16:21] VITALS: BP 113/56
--- NOTE | 2019-11-08 17:01 | NUR ---
ASSUMED CARE OF PATIENT AT APPROX 0730. ALERT AND ORIENTED X4. ASSESSMENT COMPLETED AND CHARTED. VSS ON2 LITERS 02. PAIN MINIMAL AND MANAGED WITH ORAL MEDICATION. PATIENT UP MAX ASSIST TO CHAIR AND WITH THERAPY. PURWICK IN PLACE FOR COMFORT. NO OTHER COMPLAINTS THIS SHIFT. FALL PRECAUTIONS IN PLACE. CALL LIGHT WITHIN REACH. HOURLY ROUNDS COMPLETED. WILL CONTINUE WITH PLAN OF CARE.
[2019-11-08 20:00] VITALS: BP 145/83
--- NOTE | 2019-11-09 04:49 | NUR ---
PATIENT HAS REMAINED ALERT AND ORIENTED X 4 THROUGHOUT THE SHIFT AND RESTING QUIETLY ON HOURLY ROUNDS. OMAR-WICK IN PLACE. RESPOSITIONED FOR COMFORT. MEDICATED FOR PAIN X 1 OF THIS WRITING. VITAL SIGNS STABLE. CONTINUE TO MONITOR.
[2019-11-09 07:10] VITALS: BP 152/63
--- NOTE | 2019-11-09 16:14 | NUR ---
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 AT HOME SHE NORMALLY STAYS IN HER WC, CAN TRANSFER BY HERSELF. HAD BEEN WALKING SHORT DISTANCES WITH [facility]. DOES NOT HAVE MUCH SUPPORT FROM FAMILY,[facility] STATED. CM DISCUSSED WITH [facility]/REHAB. WITH LACK OF FAMILY SUPPORT, NO ONE TO BE WITH PT.10/12 AT DISCHARGE,AND TOE TOUCH WT.BEARING ON LLE,SHE WOULD BENEFIT FROM SNF AT DISCHARGE. WILL DISCUSS WITH PT.
[2019-11-09 16:25] VITALS: BP 160/99
--- NOTE | 2019-11-09 17:01 | NUR ---
PT REMAINED ALERT AND ORIENTED. PT INCONTINENT DURING SHIFT, PUREWICK DID NOT WORK. PT WORKED WITH PT AND GOT UP TO CHAIR. PT DENIED ANY NEED FOR PAIN MEDS DURING SHIFT. FALL RISK PRECAUTIONS IN PLACE. HOURLY ROUNDING COMPLETED. Q2 TURNS COMPLETED. WILL CONTINUE TO MONITOR.
[2019-11-09 20:00] VITALS: BP 140/73
--- NOTE | 2019-11-10 04:15 | NUR ---
PT A&O, FORGETFUL AT TIMES. MEDS GIVEN ORDERED. DENIED PAIN. INCONTINENT, PUREWICK APPLIED. PT SLEEPING THROUGH THE NIGHT. WILL CONTINUE TO MONITOR.
[2019-11-10 07:35] VITALS: BP 125/54
--- NOTE | 2019-11-10 11:00 | NUR ---
SPOKE WITH PT.IN ROOM. DISCUSSED NOT QUALIFYING FOR INPT.REHAB AND RECOMMENDATION FOR SNF UNTIL SHE IS ABLE TO TRANSFER SAFELY WITH WT.BEARING RESTRICTIONS. SHE SAID SHE HAS TO GO HOME FIRST. SHE HAD SOME INSURANCE INFORMATION TO TAKE CARE OF. ASSURED HER THAT SHE HAS MEDICARE AND IT WOULD PAY FOR SNF 100% FOR FIRST 21 DAYS. ENCOURAGED HER TO CALL SON. SHE WAS TALKING TO HIM WHEN I LEFT THE ROOM. TOLD HER I WOULD COME BACK IN A LTTLE WHILE. 1230- PT.SAID SHE TALKED TO SON,NATALYA. HE FELT LIKE IT WOULD BE A GOOD IDEA FOR HER TO GO TO SNF. SHE DID NOT WANT TO RETURN TO [facility]. SHE WOULD LIKE TO STAY IN THE AREA. TOLDHER ABOUT [facility] AND [facility]. SHE WANTED TO MAKE REFERRALS TO BOTH PLACES. FAXED REFERRALS TO [facility] [phone] AND [facility]-[phone].
[2019-11-10 16:00] VITALS: BP 148/76
[2019-11-10 16:08] VITALS: BP 155/73
--- NOTE | 2019-11-10 17:02 | NUR ---
PT REMAINED ALERT AND ORIENTED. PT RESTING IN BED. PT UP TO CHAIR FOR MEALS. PT WORKED WITH PT TODAY. COVID TEST PENDING FOR AUTH FOR FACILITY. PAIN MEDS GIVEN ORDERED. FALL RISK PRECAUTIONS IN PLACE. Q2 TURNS COMPLETED. HOURLY ROUNDING COMPLETED. WILL CONTINUE TO MONITOR.
[2019-11-10 19:30] VITALS: BP 118/42
--- NOTE | 2019-11-11 04:12 | NUR ---
PT A&O, ON 2L NC, TOE TOUCH WB MAINTAINED, PT TURNED Q2H, NO C/O PAIN THIS SHIFT, VSS. WILL CONTINUE WITH PLAN OF CARE.
[2019-11-11 07:05] VITALS: BP 140/65
--- NOTE | 2019-11-11 12:16 | NUR ---
CM CALLED [facility]. HEARD BACK FROM [facility]/ADMISSIONS. SHE SAID THEIR TEAM IS REVIEWING IT FOR ADMISSION. SHE WILL LET ME KNOW IF THEY CAN ACCEPT PT. COVID TEST PENDING AT THIS TIME.
[2019-11-11 16:03] VITALS: BP 140/55
--- NOTE | 2019-11-11 16:30 | NUR ---
PT REMAINED ALERT AND ORIENTED. PT UP FOR MEALS. PT VITALS STABLE. FALL RISK PRECAUTIONS IN PLACE. HOURLY ROUNDING COMPLETED. WILL CONTINUE TO MONITOR.
[2019-11-11 21:48] VITALS: BP 96/50
[2019-11-12 03:43] LABS: HEMATOCRIT 33.5 % (37.0-47.0); HEMOGLOBIN 11.4 gm/dL (12.0-15.0); MCH 30.4 pg (26.0-34.0); MCV 89.2 fL (80.0-100.0); MPV 8.6 fl. (7.2-11.1); RBC 3.75 mil/uL (4.20-5.00); RDW-CV 12.9 % (10.5-14.5); WBC 7.4 thou/uL (4.0-11.0)
[2019-11-12 04:02] LABS: CALCIUM 8.5 mg/dL (8.5-10.1); POTASSIUM 3.5 mmol/L (3.5-5.1)
[2019-11-12 07:30] VITALS: BP 152/76
--- NOTE | 2019-11-12 07:38 | NUR ---
PATIENT HAS RESTED WELL THROUGHOUT MOST OF THE NIGHT. VSS ON 2L 02 VIA NASAL CANNULA. MEDICATIONS GIVEN ORDERED AND CHARTED. ASSESSMENT CHARTED. PATIENT HAS SOME STRESS INCONTINENCE. PURE WIK IN PLACE. IV IN RIGHT FOREARM-SL. FALL PRECAUTIONS IN PLACE AND HOURLY ROUNDS MADE. WILL CONTINUE WITH PLAN OF CARE AND NURSING TO MONITOR.
--- NOTE | 2019-11-12 16:06 | NUR ---
Pt covid test is negative. CM contacted [facility] to see if Pt can dc to SNF today. Per admissions, Pt's insurance will change to [employer] on November 17, and they will not picker feeder coverage for any skilled days on or after November 17. In order for [facility] to accept Pt, family would need to agree to pay $385/day for
--- NOTE | 2019-11-12 16:43 | NUR ---
ASSUMED CARE OF PATIENT AT APPROX 0730. ALERT AND ORIENTED X4. ASSESSMENT COMPLETED AND CHARTED. VSS ON ROOM AIR. PAIN MANAGED WITH ORAL PAIN MEDICATIONS. PATIENT UP WITH ASSIST USING GAIT BELT AND WALKER TO BEDSIDE COMMODE. PUREWICK IN PLACE DRAINING LIGHT YELLOW URINE. NO OTHER COMPLAINTS THIS SHIFT. FALL PRECAUTIONS IN PLACE. CALL LIGHT WITHING REACH. WILL CONTNINUE WITH PLAN OF CARE.
--- NOTE | 2019-11-12 17:00 | NUR ---
DANIEL QUESTIONED ADMISSIONS AT [facility] ABOUT MEDICARE NOT PAYING FOR SNF STAY AFTER NOVEMBER 17, PT.WOULD BE GOING INTO SKILLED WITH [employer]. [facility] SAID THEY WOULD NEED TO CHECK WITH THEIR BUSINESS OFFICE TO MAKE SURE. THEY WILL CALL CM IN AM.
[2019-11-12 20:50] VITALS: BP 125/56
--- NOTE | 2019-11-13 04:55 | NUR ---
PT A&O X4. VSS ON 2L BY NC. MEDS GIVEN ORDERED. PAIN MANAGED WITH PO MED. PT UP WITH MODERATE ASSIST WITH WALKER AND GAITBELT. PUREWICK IN PLACE. CALL LIGHT WITHIN REACH. NO OTHER CONCERNS AT THINS TIME. WILL CONTINUE TO MONITOR.
[2019-11-13 08:23] VITALS: BP 113/75
--- NOTE | 2019-11-13 13:55 | NUR ---
Nutrition: Pt admitted with Lt hip FX. Had hip replaced. Assessed for LOS. Has discharge orders, but still pending on placement now. Wt: 214#. Labs, Hx, meds noted. Low nutrition risk.
[2019-11-13 15:43] VITALS: BP 113/56
--- NOTE | 2019-11-13 17:06 | NUR ---
Faxed SNF referrals to [facility]. Will await decision. Concern related to Medicare coverage ending on 11/16 and [facility] care starting 11/18/19. CM to continue to follow for safe discharge planning.
--- NOTE | 2019-11-13 18:11 | NUR ---
PT AOx4, FORGETFUL AND TANANA. PT UP TO CHAIR WITH ASSIST X1 WITH GB AND WALKER. MAINTAINS TTWB TO LLE. TOLERATING REG DIET. MAINTAINING O2 SATS WITH 2L O2 PER NC. NORCO FOR PAIN MANAGEMENT. INCONTINENT, WEARS BRIEFS AND PUREWICK CATHETER IN PLACE WHILE IN BED. NO ACUTE EVENTS THIS SHIFT. VSS.
[2019-11-13 19:54] VITALS: BP 107/59
--- NOTE | 2019-11-14 05:31 | NUR ---
PATIENT SLEPT WELL THROUGH SHIFT. SHE DID NOT REPORT ANY WORSENING OF PAIN OR NAUSEA. PUREWICK IN PLACE. RECEIVED ALL MEDS SCHEDULED. ALERT AND ORIENTED, 2L-O2. PLAN IS TO D/C TO SNF. WILL CONTINUE TO MONITOR.
[2019-11-14 07:45] VITALS: BP 142/75
--- NOTE | 2019-11-14 14:00 | NUR ---
PATIENT'S [id number], STACEY HERNANDEZ ([phone]), CALLED AND STATED THAT THEY HAD FOUND A BED AVAILABLE FOR PATIENT PLACEMENT AT [facility] IN [place], [place]. FAX [phone]. PHONE [phone]. STATED THAT THE [facility] WOULD ACCEPT THE PATIENT. SPOKE WITH BERTHA YU CM AND EXPLAINED THEIR DECISION ON PLACEMENT. FAXED COVER SHEET AND PAPERWORK TO THE FACILITY AND AWAITING REPLY/APPROVAL.
[2019-11-14 16:00] VITALS: BP 138/73
--- NOTE | 2019-11-14 17:18 | NUR ---
PATIENT ALERT AND ORIENTED X 4. VITAL SIGNS STABLE ON ROOM AIR. AFEBRILE. UP WITH ASSISTANCE TO THE CHAIR FOR MEALS. PUREWICK CATHETER IN PLACE. IV PATENT AND SALINE LOCKED. PAIN BEING MANAGED WITH PO MEDICATION. DENIES NAUSEA AT THIS TIME. PATIENT TURNED AND REPOSITIONED EVERY TWO HOURS. FALL PRECAUTIONS IN PLACE AND BED ALARM ON. HOURLY ROUNDS MAINTAINED THROUGHOUT THE SHIFT. CALL LIGHT WITHIN REACH. NURSING WILL CONTINUE TO MONITOR.
[2019-11-14 19:30] VITALS: BP 97/46
--- NOTE | 2019-11-15 05:56 | NUR ---
PATIENT Q2 TURN. PUREWICK IN PLACE. NO REPORTS OF PAIN OR NAUSEA THIS SHIFT. RECEIVED ALL MEDS SCHEDULED. ALERT AND ORIENTED. SLEPT ALL SHIFT. AWAITING PLACEMENT TO SNF. WB TOE TOUCH ON LEFT. UP WITH 1 WITH GAIT BELT/WALKER. WILL CONTINUE TO FOLLOW PLAN OF CARE.
[2019-11-15 07:45] VITALS: BP 129/72
[2019-11-15 16:22] VITALS: BP 121/52
--- NOTE | 2019-11-15 16:22 | NUR ---
PATIENT ALERT AND ORIENTED X 4. VITAL SIGNS STABLE ON 3L O2 NASAL CANULA. AFEBRILE. UP WITH ASSISTANCE TO THE BEDSIDE COMODE. IV PATENT AND SALINE LOCKED. [employer] CATHERTER CHANGED AND IN PLACE AT THIS TIME. PAIN BEING MANAGED WITH PO MEDICATION. DENIES NAUSEA AT THIS TIME. TOLERATED THERAPY. PATIENT TURNED AND REPOSITIONED EVERY TWO HOURS. FALL PRECAUTIONS IN PLACE AND BED ALARM ON. HOURLY ROUNDS MAINTAINED THROUGHOUT THE SHIFT. CALL LIGHT WITHIN REACH. NURSING WILL CONTINUE TO MONITOR.
[2019-11-15 20:00] VITALS: BP 106/40
--- NOTE | 2019-11-16 05:42 | NUR ---
PUREWICK IN PLACE. Q2 TURN. RECEIVED HYDROCODONE FOR PAIN 0500. SHE WAS ABLE TO SLEEP WELL THROUGH THE NIGHT. TOE TOUCH WB ON LEFT EXTREMITY. INNER DRY HAS BEEN PLACED IN PANNUS AREA AND UNDER RIGHT BREAST TO PREVENT FURTHER IRRITATION. RECEIVED ALL MEDS SCHEULDED. RATES PAIN AT 4/10. WILL CONTINUE TO FOLLOW PLAN OF CARE.
[2019-11-16 07:20] VITALS: BP 147/62
--- NOTE | 2019-11-16 09:43 | NUR ---
RECEIVED A CALL FROM EVA AYALA ON SAT. SHE SAID FAMILY WOULD LIKE REFERRAL SENT TO [facility] IN [place], [place]. DAMPER FITTER FAXED CLINICAL INFORMATION TO . CM CALLED THIS AM AND LEFT FOR [facility] [phone] TO MAKE SURE THEY RECEIVED INFORMATION AND IF THEY WILL BE ABLE TO TAKE PT.
--- NOTE | 2019-11-16 15:18 | NUR ---
CALL FROM YENNIFER/SNF ADMISSIONS AT [facility]. ([phone]). SHE SAID THEY DO NOT HAVE BED AVAILABILITY AT THIS TIME BUT HAVE A SISTER FACILITY IN [facility]. THEY CAN ADMIT HER THERE AND THEN WHEN OTHER FACILITY HAS A BED,THEY WILL TRANSFER HER. YENNIFER SAYS FAMILY IS AGREEABLE TO THIS. DANIEL SPOKE WITH PT.AND SHE IS AGREEABLE TO THIS PLAN. ATTEMPTED TO CALL DAUGHTER IN LAW,JAOFLD-[phone]. DAUGHTER SAID SHE WAS NOT HOME AND WAS AT AN APPT. SHE TOOK CM NUMBER AND SAID SHE WOULD HAVE HER CALL ME BACK. NOTIFIED YENNIFER THAT DISCHARGE WOULD NEED TO BE TOMORROW DUE TO NEEDING TO FINALIZE DISCHARGE PLAN,TRANSPORTATION,ETC. PT.INFORMED.
[2019-11-16 17:07] VITALS: BP 119/46
--- NOTE | 2019-11-16 17:21 | NUR ---
Pt AOx4, forgetful at times. VSS. c/o pain manged with PO norco and tramadol. Maintains O2 sats on RA and needs supp O2 with exertion. Patient up with assist x1 with gb and walker. No acute events this shift
[2019-11-16 21:00] VITALS: BP 136/62
--- NOTE | 2019-11-17 05:49 | NUR ---
PATIENT HAS REMAINED ALERT AND ORIENTED X 4 THROUGHOUT THE SHIFT AND RESTING QUIETLY ON HOURLY ROUNDS. PUREWICK FOR INCONT. TURNED Q2H. MEDICATED FOR PAIN X 1 THIS SHIFT. VITAL SIGNS STABLE. PATIENT VERBALIZES THAT SHE FELT LIKE SHE HAD A GOOD DAY WITH THERAPY YESTERDAY AND IS LOOKING FORWARD TO GOING TO THE [facility]. CONTINUE TO MONITOR.
[2019-11-17 07:30] VITALS: BP 129/61
[2019-11-17 09:09] VITALS: BP 129/61
[2019-11-17] MEDS ORDERED: NORCO 10-325 T1 EAC1 PO (09:23)
--- NOTE | 2019-11-17 13:47 | NUR ---
PT.TO DISCHARGE TODAY TO [facility] SN[facility]. FAMILY CANNOT TRANSPORT. WC VAN FROM WOULD COST $887 PER [facility] TRANSPORTATION. FAMILY CANNOT AFFORD THIS. [facility] WILL KINDLY SEND THEIR WC VAN TO PICK PT.UP AND TRANSPORT BACK TO [facility]. PT. STILL AGREEABLE TO GO THERE. SHE SAID SHE DID NOT WANT HER [employer] INSURANCE THAT IS SUPPOSED TO START NOVEMBER 17. ASSISTED HER WITH CANCELLATION. DANIEL SPOKE WITH CUSTOMER SERVICE AT [facility]/JACQUI. SHE ALSO SPOKE WITH PT.ON PHONE. POLICY WAS CANCELLED CONRIRMATION #[id number]. HER MEDICARE AND [employer] CROSS SECONDARY PLAN WILL STAY IN AFFECT. DANIEL ASSISTED PT.TO DO A DPOA DOCUMENT. SW TO COME TO NOTARIZE PRIOR TO PT.DISCHARGE. WC VAN TO ARRIVE ABOUT 3:30. NOTIFIED IZA MEDEL. STACEY WAS SLEEPING BUT IZA WILL RELAY MESSAGE. ALSO NOTIFIED LORRIE HERNANDEZ. CHART COPIED TO GO WITH PT. EVA NEGRON TO CALL REPORT.
[2019-11-17 16:45] VITALS: BP 139/67
[2019-11-17 17:03] VITALS: BP 137/73
--- NOTE | 2019-11-17 17:34 | NUR ---
PT DISCHARGED TO FACILITY WITH BELONGINGS IN WHEELCHAIR ACCOMPANIED BY NURSING STAFF. IV REMOVED AND PT DRESSED WITH ASSISTANCE. DISCHARGE PAPERWORK GIVEN TO FACILITY STAFF AND REPORT GIVEN TO CHARGE NURSE AT [facility]. PT DISCHARGED IN STABLE CONDITION, VSS AND C/O NO DISCOMFORT.
--- NOTE | 2019-11-25 11:48 | NUR ---
[facility],CALLED REQUESTING A CM704O FORM FOR PT. SIGNED AND CM FAXED IT TO [facility]/[phone].
== END 2019-11-17 17:15 | DRG 543 ==
LOC: M.ERS 14:29 → M.ORTHSURG 17:48 → M.TBA-ER 17:48 → M.ORTHSURG 18:26
PROVIDERS: Family Medicine; ADMIT Internal Medicine; ATTEND Internal Medicine
DX: M80.052A Age-related osteoporosis with current pathological fracture, left femur, initial encounter for fracture (principal); J96.11 Chronic respiratory failure with hypoxia; E44.1 Mild protein-calorie malnutrition; F32.9 Major depressive disorder, single episode, unspecified; G89.29 Other chronic pain; I25.10 Atherosclerotic heart disease of native coronary artery without angina pectoris; E66.9 Obesity, unspecified; I10 Essential (primary) hypertension; J44.9 Chronic obstructive pulmonary disease, unspecified; Z96.651 Presence of right artificial knee joint; Z96.643 Presence of artificial hip joint, bilateral; Z68.34 Body mass index [BMI] 34.0-34.9, adult; I25.2 Old myocardial infarction; Z90.49 Acquired absence of other specified parts of digestive tract; Z85.3 Personal history of malignant neoplasm of breast; Z90.710 Acquired absence of both cervix and uterus; Z88.5 Allergy status to narcotic agent; Z90.12 Acquired absence of left breast and nipple; Z95.5 Presence of coronary angioplasty implant and graft; Z79.82 Long term (current) use of aspirin; Z79.899 Other long term (current) drug therapy; Z99.81 Dependence on supplemental oxygen; Z88.0 Allergy status to penicillin; Z03.818 Encounter for observation for suspected exposure to other biological agents ruled out; W18.30XA Fall on same level, unspecified, initial encounter; Z91.81 History of falling; Y93.89 Activity, other specified; Y92.038 Other place in apartment as the place of occurrence of the external cause; Y99.8 Other external cause status

== ENCOUNTER → 2020-09-27 | Outpatient (CLI) | payer OTHER ==
[~2020-09-27] MED LIST changes: +LIPITOR 10 MG10 M1 PO; +NORCO 10-325 T1 EAC1 PO
== END ==
LOC: M.ULTRA 14:05
PROVIDERS: ATTEND Family Medicine
DX: M25.561 Pain in right knee (principal)